=== PATIENT | male | born 1965 | race African-American/Black ===

== ENCOUNTER 2017-04-11 21:55 | Emergency (ER) | payer BC ==
[~2017-04-11] VITALS: Ht 182.9 cm; Wt 99.8 kg
--- NOTE | ~2017-04-11 | EKG ---
[address] [address] ELECTROCARDIOGRAM REPORT Name: PLACIDO SY [id number] Admission: 04/11/17 Attend Phys: Discharge: 04/12/17 Date of : 65 Report #: [id number] THIS REPORT FOR: //name// [facility] ED Test Date: 2017-04-11 Test Time: 21:59:02 Pat Name: PLACIDO SY Department: Room: Gender: M Pay Station Collector: [id number] : 1965 Requested By: Luis Garnett Order Number: [id number] MD: Satnam Fish Measurements Intervals [place] Rate: 76 P: 55 [place]: 150 QRS: 49 QRSD: 85 T: 33 QT: 368 QTc: 414 Interpretive Statements Sinus rhythm Baseline wander in lead(s) V3 Compared to ECG 02/25/2016 01:20:16 No significant changes Electronically Signed On 04-12-2017 8:06:58 CDT by Satnam Fish [email or web address] <ELECTRONICALLY SIGNED> By: Satnam Fish MD 04/12/17 0806 58 Satnam Fish MD /MANDI
[~2017-04-11 21:55] MED LIST: ANTIVERT25 MG PO; FLONASE 0.05%50 MCG; LISINOPRIL5 MG PO; NOHOMEMEDICATIONS; PEPCID20 MG PO; ULTRAM 50MG TAB50 MG PO; VALIUM5 MG PO; WAL-DRYL25 M1 PO; ZOFRAN ODT4 MG PO
[2017-04-11 22:11] LABS: HEMATOCRIT 41.5 % (42.0-52.0); HEMOGLOBIN 14.5 gm/dL (14.0-18.0); MCH 31.3 pg (26.0-34.0); MCV 89.4 fL (80.0-100.0); RBC 4.64 mil/uL (4.50-6.00); RDW 12.4 % (10.5-14.5); WBC 6.4 thou/uL (4.0-11.0)
[2017-04-11 22:25] LABS: ANION GAP 4 mmol/L (7-16); BUN 7 mg/dL (7-18); CALCIUM 8.6 mg/dL (8.5-10.1); CHLORIDE 106 mmol/L (98-107); CO2 27 mmol/L (21-32); GLUCOSE 110 mg/dL (74-106); POTASSIUM 3.7 mmol/L (3.5-5.1); SODIUM 137 mmol/L (136-145)
[2017-04-11 22:33] LABS: TROPONIN-I < 0.04 ng/mL (<0.04-0.07)
[2017-04-12 00:50] VITALS: BP 117/75
== END 2017-04-12 00:52 | disposition home or self-care (01) ==
LOC: ER 21:55
PROVIDERS: Emergency Medicine
DX: R07.89 Other chest pain (principal); F17.210 Nicotine dependence, cigarettes, uncomplicated; I10 Essential (primary) hypertension

== ENCOUNTER 2017-12-28 05:38 | Emergency (ER) | payer BC ==
[~2017-12-28] VITALS: Ht 182.9 cm; Wt 97.5 kg
[2017-12-28 07:20] LABS: URINE BILIRUBIN NEGATIVE (Negative); URINE BLOOD 1+ (Negative); URINE CLARITY CLEAR; URINE COLOR YELLOW; URINE GLUCOSE-RANDOM* NEGATIVE (Negative); URINE KETONES NEGATIVE (Negative); URINE LEUKOCYTES NEGATIVE (Negative); URINE NITRITE NEGATIVE (Negative); URINE PROTEIN (DIPSTICK) NEGATIVE (Negative); URINE SPECIFIC GRAVITY >= 1.030 (1.005-1.035); URINE UROBILINOGEN 0.2 E.U./dl (0.2-1.0)
[2017-12-28 07:26] LABS: ABSOLUTE NEUTROPHILS 2.7 thou/uL (1.4-8.2); BASOPHILS 0.5 % (0.0-2.0); EOSINOPHILS 3.5 % (0.0-3.0); HEMATOCRIT 43.8 % (42.0-52.0); HEMOGLOBIN 15.4 gm/dL (14.0-18.0); LYMPHOCYTES 33.5 % (24.0-44.0); MCH 31.3 pg (26.0-34.0); MCHC 35.1 g/dL (28.0-37.0); MONOCYTES 8.6 % (1.0-8.0); PLATELET COUNT 158 thou/uL (150-400); POLYS 53.9 % (36.0-66.0); RBC 4.92 mil/uL (4.50-6.00); RDW 12.4 % (10.5-14.5)
[2017-12-28 07:27] LABS: MUCUS >6 Heavy strn/LPF (None Seen)
[2017-12-28 07:28] LABS: BACTERIA 1-9 Few /HPF (None Seen); CASTS None Seen /LPF (None Seen); CRYSTALS None Seen /LPF (None Seen); SQUAMOUS 0-3 Few /LPF (0-3); URINE RBC 0-2 Rare /HPF (0-2); URINE WBC 0-5 Rare /HPF (0-5)
[2017-12-28 07:32] LABS: CALCIUM 8.8 mg/dL (8.5-10.1); POTASSIUM 3.8 mmol/L (3.5-5.1)
[2017-12-28 07:37] LABS: DIRECT BILIRUBIN 0.2 mg/dL (<0.1-0.3); TOTAL BILIRUBIN 1.8 mg/dL (<0.1-1.0); TOTAL PROTEIN 7.4 g/dL (6.4-8.2)
[2017-12-28] MEDS ORDERED: GAS-X125 M1 PO (09:18)
[2017-12-28] MEDS ORDERED: BENTYL 20 MG TA20 M1 PO (09:18)
[2017-12-28] MEDS ORDERED: ULTRAM 50MG TAB50 MG PO (09:20)
[2017-12-28] MEDS ORDERED: ZOFRAN ODT4 MG PO (09:21)
[2017-12-28 09:36] VITALS: BP 148/78
== END 2017-12-28 09:37 ==
LOC: ER 05:38
PROVIDERS: Emergency Medicine
DX: R14.0 Abdominal distension (gaseous) (principal); R94.5 Abnormal results of liver function studies; R10.30 Lower abdominal pain, unspecified; I10 Essential (primary) hypertension; F17.210 Nicotine dependence, cigarettes, uncomplicated

== ENCOUNTER 2018-01-06 03:27 | Emergency (ER) | payer BC ==
[~2018-01-06] VITALS: Ht 182.9 cm; Wt 95.3 kg
--- NOTE | ~2018-01-06 | EKG ---
[address] [address] ELECTROCARDIOGRAM REPORT Name: PLACIDO SY Room #: [facility]#: [id number] Admission: 01/06/18 Attend Phys: Discharge: 01/06/18 Date of : 65 Report #: [id number] THIS REPORT FOR: //name// [facility] ED Test Date: 2018-01-06 Test Time: 03:30:03 Pat Name: PLACIDO SY Department: Room: Gender: Nursing Associate: JAY : 1965 Requested By: Jennifer Ochoa Order Number: [id number] MD: Guillermo Omalley Measurements Intervals [place] Rate: 58 P: 74 [place]: 158 QRS: 60 QRSD: 100 T: 59 QT: 404 QTc: 397 Interpretive Statements Sinus rhythm No significant abnormality Compared to ECG 04/11/2017 21:59:02 No significant changes Electronically Signed On 01-06-2018 10:04:19 CDT by Guillermo Omalley [email or web address] <ELECTRONICALLY SIGNED> By: Guillermo Omalley MD, [facility] 01/06/18 1004 0330 0330 Guillermo Omalley MD, FACC /EPI
[~2018-01-06 03:27] MED LIST changes: +BENTYL 20 MG TA20 M1 PO; +GAS-X125 M1 PO
[2018-01-06] MEDS ORDERED: NOHOMEMEDICATIONS (03:49)
[2018-01-06 04:10] LABS: ABSOLUTE NEUTROPHILS 1.8 thou/uL (1.4-8.2); BASOPHILS 1.5 % (0.0-2.0); EOSINOPHILS 5.8 % (0.0-3.0); HEMATOCRIT 41.6 % (42.0-52.0); HEMOGLOBIN 14.5 gm/dL (14.0-18.0); LYMPHOCYTES 47.9 % (24.0-44.0); MCHC 34.9 g/dL (28.0-37.0); MCV 88.6 fL (80.0-100.0); MONOCYTES 8.8 % (1.0-8.0); PLATELET COUNT 172 thou/uL (150-400); RBC 4.69 mil/uL (4.50-6.00); RDW 12.5 % (10.5-14.5)
[2018-01-06 04:18] LABS: ANION GAP 9 mmol/L (7-16); BUN 12 mg/dL (7-18); CALCIUM 8.7 mg/dL (8.5-10.1); CHLORIDE 103 mmol/L (98-107); CO2 27 mmol/L (21-32); CREATININE 1.1 mg/dL (0.7-1.3); GLUCOSE 106 mg/dL (74-106); POTASSIUM 3.9 mmol/L (3.5-5.1); SODIUM 139 mmol/L (136-145)
[2018-01-06 04:27] LABS: ALBUMIN 3.6 g/dL (3.4-5.0); DIRECT BILIRUBIN 0.1 mg/dL (<0.1-0.3); LIPASE 241 U/L (73-393); SGOT 32 U/L (15-37); SGPT 43 U/L (30-65); TOTAL BILIRUBIN 0.9 mg/dL (<0.1-1.0); TOTAL PROTEIN 6.9 g/dL (6.4-8.2); TROPONIN-I <0.06 ng/mL (<0.06)
[2018-01-06] MEDS ORDERED: PRILOSEC OTC20 MG PO (05:20)
[2018-01-06] MEDS ORDERED: ANTIVERT25 MG PO (05:20)
[2018-01-06 05:48] VITALS: BP 117/77
== END 2018-01-06 05:49 | disposition home or self-care (01) ==
LOC: ER 03:27
PROVIDERS: Emergency Medicine
DX: R07.89 Other chest pain (principal); R42 Dizziness and giddiness; R51 Headache; R06.02 Shortness of breath; F17.210 Nicotine dependence, cigarettes, uncomplicated; I10 Essential (primary) hypertension

== ENCOUNTER 2018-01-29 02:14 | Emergency (ER) | payer BC ==
[~2018-01-29] VITALS: Ht 182.9 cm; Wt 95.3 kg
--- NOTE | ~2018-01-29 | EKG ---
[address] [address] ELECTROCARDIOGRAM REPORT Name: PLACIDO SY Room #: [facility]#: [id number] Admission: 01/29/18 Attend Phys: Discharge: 01/29/18 Date of : 65 Report #: [id number] THIS REPORT FOR: //name// [facility] ED Test Date: 2018-01-29 Test Time: 02:18:50 Pat Name: PLACIDO SY Department: Room: Gender: M Fisher: KEYON : 1965 Requested By: Sedrick Sheppard Order Number: [id number] MD: Guillermo Omalley Measurements Intervals [place] Rate: 68 P: 72 [place]: 164 QRS: 51 QRSD: 92 T: 41 QT: 361 QTc: 384 Interpretive Statements Sinus rhythm Normal tracing Compared to ECG 01/06/2018 03:30:03 No significant changes Electronically Signed On 01-29-2018 7:38:06 CDT by Guillermo Omalley [email or web address] <ELECTRONICALLY SIGNED> By: Guillermo Omalley MD, [facility] 01/29/18 0738 0218 0218 Guillermo Omalley MD, FACC /EPI
[~2018-01-29 02:14] MED LIST changes: +PRILOSEC OTC20 MG PO
[2018-01-29 02:46] LABS: ABSOLUTE NEUTROPHILS 2.5 thou/uL (1.4-8.2); BASOPHILS 1.3 % (0.0-2.0); EOSINOPHILS 6.5 % (0.0-3.0); HEMATOCRIT 41.2 % (42.0-52.0); HEMOGLOBIN 14.4 gm/dL (14.0-18.0); LYMPHOCYTES 38.7 % (24.0-44.0); MCH 31.1 pg (26.0-34.0); MCV 88.8 fL (80.0-100.0); MONOCYTES 8.8 % (1.0-8.0); PLATELET COUNT 167 thou/uL (150-400); POLYS 44.7 % (36.0-66.0); RBC 4.64 mil/uL (4.50-6.00); RDW 12.5 % (10.5-14.5); WBC 5.6 thou/uL (4.0-11.0)
[2018-01-29 02:52] LABS: ANION GAP 4 mmol/L (7-16); BUN 8 mg/dL (7-18); CALCIUM 8.9 mg/dL (8.5-10.1); CHLORIDE 106 mmol/L (98-107); CO2 32 mmol/L (21-32); CREATININE 1.1 mg/dL (0.7-1.3); GLUCOSE 134 mg/dL (74-106); POTASSIUM 3.6 mmol/L (3.5-5.1); SODIUM 142 mmol/L (136-145)
[2018-01-29 03:00] LABS: ALBUMIN 3.8 g/dL (3.4-5.0); MAGNESIUM 1.9 mg/dL (1.8-2.4); SGOT 18 U/L (15-37); SGPT 27 U/L (30-65); TOTAL BILIRUBIN 0.8 mg/dL (<0.1-1.0); TOTAL PROTEIN 7.2 g/dL (6.4-8.2); TROPONIN-I <0.06 ng/mL (<0.06)
[2018-01-29 03:45] LABS: AMP/METHAMP Negative (Negative); BARBITURATES Negative (Negative); BENZODIAZEPINES Negative (Negative); COCAINE Negative (Negative); METHADONE Negative (Negative); OPIATES Negative (Negative); PCP Negative (Negative)
[2018-01-29 05:17] VITALS: BP 117/87
== END 2018-01-29 05:17 | disposition home or self-care (01) ==
LOC: ER 02:14
PROVIDERS: Emergency Medicine
DX: R51 Headache (principal); R07.89 Other chest pain; R00.2 Palpitations; R06.02 Shortness of breath; I10 Essential (primary) hypertension; Z87.891 Personal history of nicotine dependence

== ENCOUNTER 2018-08-02 17:28 | Emergency (ER) | payer BC ==
[~2018-08-02] VITALS: Ht 182.9 cm; Wt 97.5 kg
[~2018-08-02 17:28] MED LIST changes: +CITRATE OF MAG296 ML PO; +NAPROSYN500 MG PO; +PREDNISONE 20 M20 MG PO
[2018-08-02 18:02] LABS: URINE CLARITY CLEAR; URINE COLOR YELLOW
[2018-08-02 18:03] LABS: URINE BILIRUBIN NEGATIVE (Negative); URINE BLOOD NEGATIVE (Negative); URINE GLUCOSE-RANDOM* NEGATIVE (Negative); URINE KETONES NEGATIVE (Negative); URINE LEUKOCYTES-REFLEX NEGATIVE (Negative); URINE NITRITE-REFLEX NEGATIVE (Negative); URINE PROTEIN (DIPSTICK) NEGATIVE (Negative); URINE UROBILINOGEN 0.2 E.U./dl (0.2-1.0)
[2018-08-02 19:10] LABS: ABSOLUTE NEUTROPHILS 2.7 thou/uL (1.4-8.2); BASOPHILS 1.1 % (0.0-2.0); EOSINOPHILS 6.1 % (0.0-3.0); HEMATOCRIT 44.9 % (42.0-52.0); HEMOGLOBIN 15.8 gm/dL (14.0-18.0); LYMPHOCYTES 40.8 % (24.0-44.0); MCH 31.5 pg (26.0-34.0); MCHC 35.2 g/dL (28.0-37.0); MCV 89.3 fL (80.0-100.0); MONOCYTES 9.4 % (1.0-8.0); PLATELET COUNT 161 thou/uL (150-400); POLYS 42.6 % (36.0-66.0); RBC 5.03 mil/uL (4.50-6.00); RDW 12.7 % (10.5-14.5); WBC 6.2 thou/uL (4.0-11.0)
[2018-08-02 19:14] LABS: ANION GAP 8 mmol/L (7-16); BUN 6 mg/dL (7-18); CALCIUM 8.6 mg/dL (8.5-10.1); CHLORIDE 104 mmol/L (98-107); CO2 29 mmol/L (21-32); CREATININE 0.9 mg/dL (0.7-1.3); GLUCOSE 109 mg/dL (74-106); POTASSIUM 3.9 mmol/L (3.5-5.1); SODIUM 141 mmol/L (136-145)
[2018-08-02 19:23] LABS: ALBUMIN 3.8 g/dL (3.4-5.0); LIPASE 182 U/L (73-393); SGOT 18 U/L (15-37); SGPT 29 U/L (30-65); TOTAL BILIRUBIN 0.8 mg/dL (<0.1-1.0); TOTAL PROTEIN 7.3 g/dL (6.4-8.2); TROPONIN-I <0.06 ng/mL (<0.06)
[2018-08-02] MEDS ORDERED: CARAFATE 1 GM TA1 G1 PO (19:36)
[2018-08-02 20:01] VITALS: BP 113/91
--- NOTE | 2018-08-03 12:02 | EKG ---
[address] [address] ELECTROCARDIOGRAM REPORT Name: PLACIDO SY Room #: [facility]#: [id number] Admission: 08/02/18 Attend Phys: Discharge: 08/02/18 Date of : 65 Report #: [id number] THIS REPORT FOR: //name// [facility] ED Test Date: 2018-08-02 Test Time: 18:23:57 Pat Name: PLACIDO SY Department: Room: Gender: M Investigative Research Specialist: : 1965 Requested By: Kayli Thomas Order Number: [id number] MD: Guillermo Omalley Measurements Intervals [place] Rate: 67 P: 58 [place]: 153 QRS: 44 QRSD: 86 T: 36 QT: 384 QTc: 406 Interpretive Statements Sinus rhythm Atrial premature complex Compared to ECG 01/29/2018 02:18:50 Atrial premature complex(es) now present Electronically Signed On 08-03-2018 12:01:48 INSPECTION CLERK by Guillermo Omalley [email or web address] <ELECTRONICALLY SIGNED> By: Guillermo Omalley MD, [facility] 08/03/18 1201 1823 22 Guillermo Omalley MD, FACC /EPI
== END 2018-08-02 20:03 | disposition home or self-care (01) ==
LOC: ER 17:28
PROVIDERS: Physician Assistant
DX: K29.70 Gastritis, unspecified, without bleeding (principal); I10 Essential (primary) hypertension; Z87.891 Personal history of nicotine dependence

== ENCOUNTER → 2018-08-26 | Outpatient (CLI) | payer BC ==
[~2018-08-26] MED LIST changes: +CARAFATE 1 GM TA1 G1 PO
== END ==
LOC: ULTRA 08:34
DX: N28.1 Cyst of kidney, acquired (principal); R14.0 Abdominal distension (gaseous)

== ENCOUNTER 2018-09-16 19:38 | Emergency (ER) | payer BC ==
[~2018-09-16] VITALS: Ht 182.9 cm; Wt 99.8 kg
[2018-09-16 20:14] LABS: ABSOLUTE NEUTROPHILS 2.7 thou/uL (1.4-8.2); BASOPHILS 1.2 % (0.0-2.0); EOSINOPHILS 5.7 % (0.0-3.0); HEMATOCRIT 45.4 % (42.0-52.0); HEMOGLOBIN 15.8 gm/dL (14.0-18.0); LYMPHOCYTES 40.9 % (24.0-44.0); MCH 31.2 pg (26.0-34.0); MCHC 34.7 g/dL (28.0-37.0); MCV 89.8 fL (80.0-100.0); MONOCYTES 9.4 % (1.0-8.0); PLATELET COUNT 168 thou/uL (150-400); POLYS 42.8 % (36.0-66.0); RBC 5.05 mil/uL (4.50-6.00); RDW 12.7 % (10.5-14.5); WBC 6.3 thou/uL (4.0-11.0)
[2018-09-16 20:21] LABS: CALCIUM 9.3 mg/dL (8.5-10.1); POTASSIUM 3.9 mmol/L (3.5-5.1)
[2018-09-16 20:27] LABS: ALBUMIN 4.1 g/dL (3.4-5.0); TOTAL PROTEIN 7.7 g/dL (6.4-8.2)
[2018-09-16] MEDS ORDERED: BUTALB-APAP-CA1 EACH PO (20:44)
[2018-09-16 21:23] VITALS: BP 134/87
== END 2018-09-16 21:24 | disposition home or self-care (01) ==
LOC: ER 19:38
PROVIDERS: Nurse Practitioner Family
DX: R51 Headache (principal); I10 Essential (primary) hypertension; Z87.891 Personal history of nicotine dependence

== ENCOUNTER 2019-01-14 16:20 | Emergency (ER) | payer BC ==
[~2019-01-14] VITALS: Ht 182.9 cm; Wt 97.5 kg
[~2019-01-14 16:20] MED LIST changes: +BUTALB-APAP-CA1 EACH PO
[2019-01-14 18:09] LABS: ABSOLUTE NEUTROPHILS 2.8 thou/uL (1.4-8.2); BASOPHILS 0.6 % (0.0-2.0); EOSINOPHILS 3.7 % (0.0-3.0); HEMATOCRIT 44.6 % (42.0-52.0); HEMOGLOBIN 15.5 gm/dL (14.0-18.0); LYMPHOCYTES 36.1 % (24.0-44.0); MCH 31.3 pg (26.0-34.0); MCHC 34.8 g/dL (28.0-37.0); MONOCYTES 7.5 % (1.0-8.0); PLATELET COUNT 172 thou/uL (150-400); POLYS 52.1 % (36.0-66.0); RBC 4.96 mil/uL (4.50-6.00); RDW 12.6 % (10.5-14.5); WBC 5.4 thou/uL (4.0-11.0)
[2019-01-14 18:11] LABS: ANION GAP 7 mmol/L (7-16); BUN 8 mg/dL (7-18); CALCIUM 9.4 mg/dL (8.5-10.1); CHLORIDE 103 mmol/L (98-107); CO2 30 mmol/L (21-32); GLUCOSE 111 mg/dL (74-106); POTASSIUM 3.8 mmol/L (3.5-5.1); SODIUM 140 mmol/L (136-145)
[2019-01-14 18:20] LABS: TROPONIN-I <0.06 ng/mL (<0.06)
[2019-01-14 19:04] VITALS: BP 136/85
--- NOTE | 2019-01-15 09:47 | EKG ---
[address] [address] ELECTROCARDIOGRAM REPORT Name: PLACIDO SY Room #: [facility]#: [id number] ������������������ Admission: 01/14/19 ������������������ Attend Phys: Discharge: 01/14/19 ������������������ Date of : 65 Report #: [id number] ����������������������������������������������������������������� [id number] THIS REPORT FOR: //name// [facility] ED Test Date: 2019-01-14 Test Time: 16:17:18 Pat Name: PLACIDO SY Department: Room: Gender: M Knitting Supervisor: BRANDY : 1965 Requested By: Modesto Mccray Order Number: [id number] MD: Guillermo Omalley Measurements Intervals [place] Rate: 84 P: 73 [place]: 147 QRS: 49 QRSD: 79 T: 52 QT: 340 QTc: 402 Interpretive Statements Sinus rhythm Normal tracing Compared to ECG 08/02/2018 18:23:57 Atrial premature complex(es) no longer present Electronically Signed On 01-15-2019 9:46:57 CDT by Guillermo Omalley [email or web address] ��������������������������������������������� <ELECTRONICALLY SIGNED> ���������������������������������������� By: Guillermo Omalley MD, [facility] ��������������������������������������������� 01/15/19 0946 D: [id number] 16 Guillermo Omalley MD, FACC /EPI
== END 2019-01-14 19:07 | disposition home or self-care (01) ==
LOC: ER 16:20
PROVIDERS: Emergency Medicine
DX: I10 Essential (primary) hypertension (principal); Z87.891 Personal history of nicotine dependence

== ENCOUNTER 2019-02-27 09:30 | Emergency (ER) | payer BC ==
[~2019-02-27] VITALS: Ht 182.9 cm; Wt 93.0 kg
[2019-02-27 10:09] LABS: ABSOLUTE NEUTROPHILS 2.3 thou/uL (1.4-8.2); RDW 12.5 % (10.5-14.5)
[2019-02-27 10:11] LABS: BASOPHILS 1.1 % (0.0-2.0); EOSINOPHILS 4.5 % (0.0-3.0); HEMATOCRIT 45.6 % (42.0-52.0); HEMOGLOBIN 15.8 gm/dL (14.0-18.0); LYMPHOCYTES 38.6 % (24.0-44.0); MCHC 34.8 g/dL (28.0-37.0); MCV 89.2 fL (80.0-100.0); MONOCYTES 9.7 % (1.0-8.0); POLYS 46.1 % (36.0-66.0); RBC 5.11 mil/uL (4.50-6.00)
[2019-02-27 10:12] LABS: CALCIUM 9.3 mg/dL (8.5-10.1); CREATININE 1.1 mg/dL (0.7-1.3); POTASSIUM 4.2 mmol/L (3.5-5.1)
[2019-02-27 10:18] LABS: ALBUMIN 4.2 g/dL (3.4-5.0); DIRECT BILIRUBIN 0.2 mg/dL (<0.1-0.3); TOTAL BILIRUBIN 1.4 mg/dL (<0.1-1.0)
[2019-02-27 10:55] LABS: LARGE PLATELETS FEW; PLATELET COUNT 179 thou/uL (150-400); PLATELET ESTIMATE NORMAL
[2019-02-27 11:57] VITALS: BP 126/88
--- NOTE | 2019-02-28 10:31 | EKG ---
[address] [address] ELECTROCARDIOGRAM REPORT Name: PLACIDO SY Room #: [facility]#: [id number] Admission: 02/27/19 Attend Phys: Discharge: 02/27/19 Date of : 65 Report #: [id number] THIS REPORT FOR: //name// [facility] ED Test Date: 2019-02-27 Test Time: 09:36:41 Pat Name: PLACIDO SY Department: Room: Gender: M Laminating Machine Operator: KEYON : 1965 Requested By: Jennifer Ochoa Order Number: [id number] MD: Guillermo Omalley Measurements Intervals [place] Rate: 65 P: 73 NE: 156 QRS: 46 QRSD: 103 T: 57 QT: 401 QTc: 417 Interpretive Statements Sinus rhythm Normal tracing Compared to ECG 01/14/2019 16:17:18 No significant changes Electronically Signed On 02-28-2019 10:31:24 CDT by Guillermo Omalley [email or web address] <ELECTRONICALLY SIGNED> By: Guillermo Omalley MD, [facility] 02/28/19 1031 0936 0936 Guillermo Omalley MD, FACC /EPI
== END 2019-02-27 12:06 | disposition home or self-care (01) ==
LOC: ER 09:30
PROVIDERS: Emergency Medicine
DX: R10.32 Left lower quadrant pain (principal); R10.13 Epigastric pain; Z87.891 Personal history of nicotine dependence; I10 Essential (primary) hypertension

== ENCOUNTER 2019-03-20 00:24 | Emergency (ER) | payer BC ==
[~2019-03-20] VITALS: Ht 182.9 cm; Wt 93.0 kg
[2019-03-20] MEDS ORDERED: NOHOMEMEDICATIONS (01:09)
[2019-03-20 01:36] LABS: URINE BILIRUBIN NEGATIVE (Negative); URINE BLOOD NEGATIVE (Negative); URINE CLARITY CLEAR; URINE COLOR YELLOW; URINE GLUCOSE-RANDOM* NEGATIVE (Negative); URINE KETONES NEGATIVE (Negative); URINE LEUKOCYTES-REFLEX NEGATIVE (Negative); URINE NITRITE-REFLEX NEGATIVE (Negative); URINE PROTEIN (DIPSTICK) NEGATIVE (Negative); URINE SPECIFIC GRAVITY <= 1.005 (1.005-1.035); URINE UROBILINOGEN 0.2 E.U./dl (0.2-1.0)
[2019-03-20 02:07] LABS: ABSOLUTE NEUTROPHILS 2.4 thou/uL (1.4-8.2); BASOPHILS 0.8 % (0.0-2.0); EOSINOPHILS 5.9 % (0.0-3.0); HEMATOCRIT 41.7 % (42.0-52.0); HEMOGLOBIN 13.9 gm/dL (14.0-18.0); MCHC 33.4 g/dL (28.0-37.0); MONOCYTES 7.7 % (1.0-8.0); PLATELET COUNT 164 thou/uL (150-400); POLYS 45.6 % (36.0-66.0); RBC 4.63 mil/uL (4.50-6.00); RDW 12.6 % (10.5-14.5); WBC 5.2 thou/uL (4.0-11.0)
[2019-03-20 02:09] LABS: CALCIUM 9.1 mg/dL (8.5-10.1); POTASSIUM 3.8 mmol/L (3.5-5.1)
[2019-03-20 02:15] LABS: ALBUMIN 3.7 g/dL (3.4-5.0); DIRECT BILIRUBIN 0.1 mg/dL (<0.1-0.3); TOTAL BILIRUBIN 1.1 mg/dL (<0.1-1.0); TOTAL PROTEIN 7.1 g/dL (6.4-8.2)
[2019-03-20 02:47] VITALS: BP 126/83
== END 2019-03-20 02:52 | disposition home or self-care (01) ==
LOC: ER 00:24
PROVIDERS: Emergency Medicine
DX: R10.9 Unspecified abdominal pain (principal); I10 Essential (primary) hypertension

== ENCOUNTER 2019-04-15 15:08 | Emergency (ER) | payer BC ==
[~2019-04-15] VITALS: Ht 182.9 cm; Wt 97.5 kg
[2019-04-15 17:04] LABS: ABSOLUTE NEUTROPHILS 2.9 thou/uL (1.4-8.2); BASOPHILS 0.8 % (0.0-2.0); EOSINOPHILS 4.4 % (0.0-3.0); HEMATOCRIT 43.2 % (42.0-52.0); HEMOGLOBIN 14.4 gm/dL (14.0-18.0); LYMPHOCYTES 35.6 % (24.0-44.0); MCH 30.2 pg (26.0-34.0); MCHC 33.3 g/dL (28.0-37.0); MCV 90.6 fL (80.0-100.0); MONOCYTES 8.4 % (1.0-8.0); PLATELET COUNT 178 thou/uL (150-400); POLYS 50.8 % (36.0-66.0); RBC 4.76 mil/uL (4.50-6.00); RDW 12.6 % (10.5-14.5); WBC 5.6 thou/uL (4.0-11.0)
[2019-04-15 17:22] LABS: ALBUMIN 3.8 g/dL (3.4-5.0); ANION GAP 5 mmol/L (7-16); BUN 9 mg/dL (7-18); CHLORIDE 106 mmol/L (98-107); CO2 31 mmol/L (21-32); CREATININE 1.1 mg/dL (0.7-1.3); GLUCOSE 90 mg/dL (74-106); POTASSIUM 4.1 mmol/L (3.5-5.1); SGOT 13 U/L (15-37); SGPT 12 U/L (30-65); SODIUM 142 mmol/L (136-145); TOTAL PROTEIN 7.2 g/dL (6.4-8.2); TROPONIN-I <0.06 ng/mL (<0.06)
[2019-04-15 17:27] LABS: CALCIUM 9.1 mg/dL (8.5-10.1)
[2019-04-15] MEDS ORDERED: NORCO 5-325 TA1 EAC1 PO (17:27)
[2019-04-15 17:47] VITALS: BP 134/90
--- NOTE | 2019-04-16 12:52 | EKG ---
[address] [address] ELECTROCARDIOGRAM REPORT Name: PLACIDO SY [id number] Admission: 04/15/19 Attend Phys: Discharge: 04/15/19 Date of : 65 Report #: [id number] THIS REPORT FOR: //name// [facility] ED Test Date: 2019-04-15 Test Time: 16:40:32 Pat Name: PLACIDO SY Department: Room: Gender: Supervisor Drawing: EBENEZER : 1965 Requested By: Kayli Thomas Order Number: [id number] MD: Satnam Fish Measurements Intervals [place] Rate: 67 P: 75 [place]: 155 QRS: 50 QRSD: 83 T: 49 QT: 386 QTc: 408 Interpretive Statements Sinus rhythm Compared to ECG 02/27/2019 09:36:41 No significant changes Electronically Signed On 04-16-2019 12:51:57 CDT by Satnam Fish [email or web address] <ELECTRONICALLY SIGNED> By: Satnam Fish MD 04/16/19 1251 1640 MD TRA Zuniga
[2019-04-16] MEDS ORDERED: AUGMENTIN 875-1 EACH PO (18:03)
[2019-04-22] MEDS ORDERED: NASACORT10.8 ML NARES (14:40)
[2019-04-22] MEDS ORDERED: AUGMENTIN 875-1 EACH PO (14:40)
[2019-04-22] MEDS ORDERED: PREDNISONE 20 M20 MG PO (14:40)
== END 2019-04-15 17:45 | disposition home or self-care (01) ==
LOC: ER 15:08
PROVIDERS: Physician Assistant
DX: M79.651 Pain in right thigh (principal); I10 Essential (primary) hypertension; Z87.891 Personal history of nicotine dependence

== ENCOUNTER 2019-04-16 16:28 | Emergency (ER) | payer BC ==
[~2019-04-16] VITALS: Ht 182.9 cm; Wt 97.5 kg
[~2019-04-16 16:28] MED LIST changes: +NORCO 5-325 TA1 EAC1 PO
[2019-04-16 17:31] LABS: ABSOLUTE NEUTROPHILS 2.5 thou/uL (1.4-8.2); BASOPHILS 0.9 % (0.0-2.0); EOSINOPHILS 5.9 % (0.0-3.0); HEMATOCRIT 43.9 % (42.0-52.0); HEMOGLOBIN 14.8 gm/dL (14.0-18.0); LYMPHOCYTES 36.7 % (24.0-44.0); MCH 30.3 pg (26.0-34.0); MCHC 33.7 g/dL (28.0-37.0); MONOCYTES 7.6 % (1.0-8.0); PLATELET COUNT 188 thou/uL (150-400); POLYS 48.9 % (36.0-66.0); RBC 4.88 mil/uL (4.50-6.00); RDW 12.6 % (10.5-14.5)
[2019-04-16 17:34] LABS: CALCIUM 9.3 mg/dL (8.5-10.1); POTASSIUM 3.8 mmol/L (3.5-5.1)
[2019-04-16 17:40] LABS: ALBUMIN 3.9 g/dL (3.4-5.0); TOTAL BILIRUBIN 1.2 mg/dL (<0.1-1.0); TOTAL PROTEIN 7.4 g/dL (6.4-8.2)
[2019-04-16] MEDS ORDERED: AUGMENTIN 875-1 EACH PO (18:03)
[2019-04-16 18:41] VITALS: BP 140/89
[2019-04-22] MEDS ORDERED: PREDNISONE 20 M20 MG PO (14:40)
[2019-04-22] MEDS ORDERED: AUGMENTIN 875-1 EACH PO (14:40)
[2019-04-22] MEDS ORDERED: NASACORT10.8 ML NARES (14:40)
== END 2019-04-16 18:47 | disposition still patient (30) ==
LOC: ER 16:28
PROVIDERS: Nurse Practitioner Family
DX: J32.9 Chronic sinusitis, unspecified (principal); R04.2 Hemoptysis; I10 Essential (primary) hypertension; Z87.891 Personal history of nicotine dependence

== ENCOUNTER → 2019-04-22 | Emergency (ER) | payer BC ==
[~2019-04-22] VITALS: Ht 182.9 cm; Wt 97.5 kg
[~2019-04-22] MED LIST changes: +AUGMENTIN 875-1 EACH PO; +NASACORT10.8 ML NARES
[2019-04-22 15:08] VITALS: BP 138/77
== END ==
LOC: ER 13:34
DX: H66.92 Otitis media, unspecified, left ear (principal); R42 Dizziness and giddiness; J32.1 Chronic frontal sinusitis; K21.9 Gastro-esophageal reflux disease without esophagitis; I10 Essential (primary) hypertension; Z87.891 Personal history of nicotine dependence

== ENCOUNTER 2019-05-13 13:10 | Emergency (ER) | payer BC ==
[~2019-05-13] VITALS: Ht 182.9 cm; Wt 93.9 kg
[2019-05-13 13:10] VITALS: BP 129/79
== END 2019-05-13 13:43 | disposition home or self-care (01) ==
LOC: ER 13:10
DX: M79.604 Pain in right leg (principal); R21 Rash and other nonspecific skin eruption; I10 Essential (primary) hypertension; K21.9 Gastro-esophageal reflux disease without esophagitis; Z87.891 Personal history of nicotine dependence

== ENCOUNTER 2019-08-27 08:50 | Emergency (ER) | payer BC ==
[~2019-08-27] VITALS: Ht 182.9 cm; Wt 95.3 kg
[2019-08-27 09:20] LABS: BASOPHILS 1.1 % (0.0-2.0); EOSINOPHILS 4.6 % (0.0-3.0); HEMATOCRIT 45.1 % (42.0-52.0); HEMOGLOBIN 15.1 gm/dL (14.0-18.0); LYMPHOCYTES 41.4 % (24.0-44.0); MCHC 33.4 g/dL (28.0-37.0); MCV 89.8 fL (80.0-100.0); MONOCYTES 8.1 % (1.0-8.0); PLATELET COUNT 182 thou/uL (150-400); POLYS 44.8 % (36.0-66.0); RBC 5.02 mil/uL (4.50-6.00); RDW 12.5 % (10.5-14.5); WBC 4.6 thou/uL (4.0-11.0)
[2019-08-27 09:28] LABS: ANION GAP 8 mmol/L (7-16); BUN 8 mg/dL (7-18); CALCIUM 9.2 mg/dL (8.5-10.1); CHLORIDE 103 mmol/L (98-107); CO2 29 mmol/L (21-32); GLUCOSE 107 mg/dL (74-106); POTASSIUM 3.9 mmol/L (3.5-5.1); SODIUM 140 mmol/L (136-145)
[2019-08-27 09:37] LABS: ALBUMIN 4.1 g/dL (3.4-5.0); SGOT 18 U/L (15-37); SGPT 26 U/L (30-65); TOTAL PROTEIN 7.9 g/dL (6.4-8.2); TROPONIN-I <0.06 ng/mL (<0.06)
[2019-08-27] MEDS ORDERED: ADULT LOW DOSE81 MG PO (11:44)
[2019-08-27 11:55] VITALS: BP 135/83
--- NOTE | 2019-08-27 16:17 | EKG ---
[facility] [place] [address] ELECTROCARDIOGRAM REPORT Name: PLACIDO SY Room #: [facility]#: [id number] Admission: 08/27/19 Attend Phys: Discharge: 08/27/19 Date of : 65 Report #: [id number] THIS REPORT FOR: cc: Brie Meng MD, Nora P. MD Couchonnal, Luis F. MD ~ THIS REPORT FOR: //name// [facility] ED Test Date: 2019-08-27 Test Time: 08:54:54 Pat Name: PLACIDO SY Department: Room: Gender: Gluer Machine Setup Operator: EBENEZER : 1965 Requested By: Tamika Dillon Order Number: [id number] MD: Satnam Fish Measurements Intervals [place] Rate: 76 P: 60 [place]: 152 QRS: 32 QRSD: 80 T: 31 QT: 358 QTc: 403 Interpretive Statements Sinus rhythm Compared to ECG 04/15/2019 16:40:32 No significant changes Electronically Signed On 08-27-2019 16:16:11 SUBWAY CONDUCTOR by Satnam Fish [email or web address] <ELECTRONICALLY SIGNED> By: Satnam Fish MD 08/27/19 1616 0854 0854 Satnam Fish MD /MANDI
--- NOTE | 2019-08-27 16:18 | EKG ---
[facility] [place] [address] ELECTROCARDIOGRAM REPORT Name: PLACIDO SY Room #: [facility]#: [id number] Admission: 08/27/19 Attend Phys: Discharge: 08/27/19 Date of : 65 Report #: [id number] THIS REPORT FOR: cc: Brie Meng MD, Nora P. MD Couchonnal, Luis F. MD ~ THIS REPORT FOR: //name// [facility] ED Test Date: 2019-08-27 Test Time: 10:54:17 Pat Name: PLACIDO SY Department: Room: Gender: Enrollment Nurse: EBENEZER : 1965 Requested By: Tamika Dillon Order Number: [id number] MD: Satnam Fish Measurements Intervals [place] Rate: 65 P: 65 [place]: 163 QRS: 27 QRSD: 77 T: 36 QT: 379 QTc: 394 Interpretive Statements Sinus rhythm Compared to ECG 04/15/2019 16:40:32 No significant changes Electronically Signed On 08-27-2019 16:17:06 HEAD BONE GRINDER by Satnam Fish [email or web address] <ELECTRONICALLY SIGNED> By: Satnam Fish MD 08/27/19 1617 1054 1054 Satnam Fish MD /EPI
== END 2019-08-27 11:56 | disposition home or self-care (01) ==
LOC: ER 08:50
PROVIDERS: Emergency Medicine Emergency Medical Services
DX: R07.9 Chest pain, unspecified (principal); I10 Essential (primary) hypertension; K21.9 Gastro-esophageal reflux disease without esophagitis; Z87.891 Personal history of nicotine dependence

== ENCOUNTER 2019-09-14 04:44 | Emergency (ER) | payer BC ==
[~2019-09-14] VITALS: Ht 182.9 cm; Wt 94.3 kg
[~2019-09-14 04:44] MED LIST changes: +ADULT LOW DOSE81 MG PO
[2019-09-14 05:08] LABS: BASOPHILS 1.1 % (0.0-2.0); EOSINOPHILS 5.3 % (0.0-3.0); HEMATOCRIT 43.3 % (42.0-52.0); HEMOGLOBIN 14.5 gm/dL (14.0-18.0); LYMPHOCYTES 44.3 % (24.0-44.0); MCH 30.3 pg (26.0-34.0); MCHC 33.5 g/dL (28.0-37.0); MCV 90.4 fL (80.0-100.0); MONOCYTES 8.8 % (1.0-8.0); PLATELET COUNT 159 thou/uL (150-400); POLYS 40.5 % (36.0-66.0); RBC 4.78 mil/uL (4.50-6.00); RDW 12.6 % (10.5-14.5); WBC 4.9 thou/uL (4.0-11.0)
[2019-09-14 05:12] LABS: ANION GAP 9 mmol/L (7-16); BUN 10 mg/dL (7-18); CALCIUM 8.9 mg/dL (8.5-10.1); CHLORIDE 103 mmol/L (98-107); CO2 28 mmol/L (21-32); GLUCOSE 107 mg/dL (74-106); POTASSIUM 3.7 mmol/L (3.5-5.1); SODIUM 140 mmol/L (136-145)
[2019-09-14 05:18] LABS: ALBUMIN 3.7 g/dL (3.4-5.0); DIRECT BILIRUBIN 0.1 mg/dL (<0.1-0.2); SGOT 15 U/L (15-37); SGPT 17 U/L (30-65); TOTAL PROTEIN 7.1 g/dL (6.4-8.2)
[2019-09-14 05:34] LABS: TROPONIN-I <0.06 ng/mL (<0.06)
[2019-09-14 05:55] VITALS: BP 136/83
--- NOTE | 2019-09-14 08:18 | EKG ---
[facility] [place] [address] ELECTROCARDIOGRAM REPORT Name: PLACIDO SY Room #: [facility]#: [id number] Admission: 09/14/19 Attend Phys: Discharge: 09/14/19 Date of : 65 Report #: [id number] THIS REPORT FOR: cc: Brie Meng MD, Nora P. MD Lundgren,Guillermo Gallego MD [facility] ~ THIS REPORT FOR: //name// [facility] ED Test Date: 2019-09-14 Test Time: 04:46:47 Pat Name: PLACIDO SY Department: Room: Gender: Networks Software Consultant: CORINE : 1965 Requested By: Jennifer Ochoa Order Number: [id number] MD: Guillermo Omalley Measurements Intervals [place] Rate: 67 P: 63 NM: 163 QRS: 39 QRSD: 85 T: 32 QT: 377 QTc: 398 Interpretive Statements Sinus rhythm Normal tracing Compared to ECG 08/27/2019 10:54:17 No significant changes Electronically Signed On 09-14-2019 8:17:38 CONSULTING NETWORKING ENGINEER by Guillermo Omalley [email or web address] <ELECTRONICALLY SIGNED> By: Guillermo Omalley MD, FACC 09/14/19 0817 0446 0446 Guillermo Omalley MD, [facility] /EPI
== END 2019-09-14 06:00 | disposition home or self-care (01) ==
LOC: ER 04:44
PROVIDERS: Emergency Medicine
DX: R07.89 Other chest pain (principal); R00.2 Palpitations; R42 Dizziness and giddiness; R41.0 Disorientation, unspecified; R26.2 Difficulty in walking, not elsewhere classified; I10 Essential (primary) hypertension; K21.9 Gastro-esophageal reflux disease without esophagitis; F12.90 Cannabis use, unspecified, uncomplicated; Z87.891 Personal history of nicotine dependence

== ENCOUNTER 2019-10-19 16:55 | Emergency (ER) | payer BC ==
[~2019-10-19] VITALS: Ht 182.9 cm; Wt 95.3 kg
[2019-10-19 17:00] VITALS: BP 152/107
[2019-10-19] MEDS ORDERED: CARAFATE 1 GM TA1 G1 PO (17:09)
[2019-10-19 17:23] LABS: URINE BILIRUBIN NEGATIVE (Negative); URINE BLOOD NEGATIVE (Negative); URINE CLARITY CLEAR; URINE COLOR YELLOW; URINE GLUCOSE-RANDOM* NEGATIVE (Negative); URINE KETONES NEGATIVE (Negative); URINE LEUKOCYTES-REFLEX NEGATIVE (Negative); URINE NITRITE-REFLEX NEGATIVE (Negative); URINE PROTEIN (DIPSTICK) NEGATIVE (Negative); URINE SPECIFIC GRAVITY 1.015 (1.005-1.035); URINE UROBILINOGEN 0.2 E.U./dl (0.2-1.0)
[2019-10-19 17:58] LABS: ABSOLUTE NEUTROPHILS 2.1 thou/uL (1.4-8.2); EOSINOPHILS 5.8 % (0.0-3.0); MCH 30.7 pg (26.0-34.0); MCV 90.3 fL (80.0-100.0); MONOCYTES 6.9 % (1.0-8.0); PLATELET COUNT 185 thou/uL (150-400); POLYS 45.3 % (36.0-66.0); RBC 5.21 mil/uL (4.50-6.00); RDW 12.4 % (10.5-14.5); WBC 4.7 thou/uL (4.0-11.0)
[2019-10-19 18:02] LABS: CALCIUM 9.2 mg/dL (8.5-10.1); CREATININE 1.1 mg/dL (0.7-1.3); POTASSIUM 3.7 mmol/L (3.5-5.1)
[2019-10-19 18:08] LABS: ALBUMIN 4.4 g/dL (3.4-5.0); TOTAL BILIRUBIN 1.9 mg/dL (<0.1-1.0)
[2019-10-19] MEDS ORDERED: PROBIOTIC1 EAC7 PO (19:19)
== END 2019-10-19 20:00 | disposition home or self-care (01) ==
LOC: ER 16:55
PROVIDERS: Nurse Practitioner Family
DX: R10.32 Left lower quadrant pain (principal); I10 Essential (primary) hypertension; K21.9 Gastro-esophageal reflux disease without esophagitis; Z87.891 Personal history of nicotine dependence

== ENCOUNTER 2019-11-25 21:45 | Emergency (ER) | payer BC ==
[~2019-11-25] VITALS: Ht 182.9 cm; Wt 89.8 kg
[~2019-11-25 21:45] MED LIST changes: +PROBIOTIC1 EAC7 PO
[2019-11-25] MEDS ORDERED: TOPROL XL25 MG PO (21:52)
[2019-11-25 22:18] LABS: ABSOLUTE NEUTROPHILS 2.4 thou/uL (1.4-8.2); BASOPHILS 0.8 % (0.0-2.0); EOSINOPHILS 4.6 % (0.0-3.0); HEMOGLOBIN 14.1 gm/dL (14.0-18.0); LYMPHOCYTES 41.5 % (24.0-44.0); MCH 30.6 pg (26.0-34.0); MCHC 34.3 g/dL (28.0-37.0); MCV 89.3 fL (80.0-100.0); MONOCYTES 7.8 % (1.0-8.0); PLATELET COUNT 164 thou/uL (150-400); POLYS 45.3 % (36.0-66.0); RBC 4.59 mil/uL (4.50-6.00); RDW 12.7 % (10.5-14.5); WBC 5.4 thou/uL (4.0-11.0)
[2019-11-25 22:22] LABS: CALCIUM 8.2 mg/dL (8.5-10.1); POTASSIUM 3.7 mmol/L (3.5-5.1)
[2019-11-25 22:29] LABS: ALBUMIN 3.8 g/dL (3.4-5.0); DIRECT BILIRUBIN 0.2 mg/dL (<0.1-0.2); TOTAL BILIRUBIN 1.5 mg/dL (<0.1-1.0)
[2019-11-25 23:15] VITALS: BP 127/83
[2019-11-25] MEDS ORDERED: REGLAN 5 MG TAB5 MG PO (23:32)
--- NOTE | 2019-11-26 08:23 | EKG ---
[facility] [place] [address] ELECTROCARDIOGRAM REPORT Name: PLACIDO SY Room #: [facility]#: [id number] Admission: 11/25/19 Attend Phys: Discharge: 11/25/19 Date of : 65 Report #: [id number] THIS REPORT FOR: cc: Brie Meng MD, Nora P. MD Lundgren, Craig H. MD [facility] THIS REPORT FOR: //name// [facility] ED Test Date: 2019-11-25 Test Time: 22:22:47 Pat Name: PLACIDO SY Department: Room: Gender: Communication Professor: NO : 1965 Requested By: Jennifer Ochoa Order Number: [id number] MD: Guillermo Omalley Measurements Intervals [place] Rate: 62 P: 63 RI: 166 QRS: 42 QRSD: 85 T: 36 QT: 395 QTc: 401 Interpretive Statements Sinus rhythm Normal tracing Compared to ECG 09/14/2019 04:46:47 No significant changes Electronically Signed On 11-26-2019 8:22:02 CDT by Guillermo Omalley [email or web address] <ELECTRONICALLY SIGNED> By: Guillermo Omalley MD, FACC 11/26/19 0822 222 21 Guillermo Omalley MD, [facility] /EPI
== END 2019-11-25 23:47 | disposition home or self-care (01) ==
LOC: ER 21:45
PROVIDERS: Emergency Medicine
DX: R11.0 Nausea (principal); R42 Dizziness and giddiness; E80.6 Other disorders of bilirubin metabolism; I10 Essential (primary) hypertension; K21.9 Gastro-esophageal reflux disease without esophagitis; Z87.891 Personal history of nicotine dependence

== ENCOUNTER 2019-12-04 10:20 | Emergency (ER) | payer BC ==
[~2019-12-04] VITALS: Ht 182.9 cm; Wt 90.3 kg
[~2019-12-04 10:20] MED LIST changes: +REGLAN 5 MG TAB5 MG PO; +TOPROL XL25 MG PO
[2019-12-04 11:24] LABS: EOSINOPHILS 5.5 % (0.0-3.0); HEMATOCRIT 42.3 % (42.0-52.0); HEMOGLOBIN 14.4 gm/dL (14.0-18.0); LYMPHOCYTES 38.9 % (24.0-44.0); MCH 30.6 pg (26.0-34.0); MCHC 33.9 g/dL (28.0-37.0); MCV 90.2 fL (80.0-100.0); MONOCYTES 8.5 % (1.0-8.0); PLATELET COUNT 164 thou/uL (150-400); POLYS 46.1 % (36.0-66.0); RBC 4.69 mil/uL (4.50-6.00); RDW 13.1 % (10.5-14.5); WBC 4.4 thou/uL (4.0-11.0)
[2019-12-04 11:38] LABS: ANION GAP 4 mmol/L (7-16); BUN 5 mg/dL (7-18); CALCIUM 8.4 mg/dL (8.5-10.1); CHLORIDE 105 mmol/L (98-107); CO2 31 mmol/L (21-32); CREATININE 0.9 mg/dL (0.7-1.3); GLUCOSE 92 mg/dL (74-106); POTASSIUM 3.8 mmol/L (3.5-5.1); SODIUM 140 mmol/L (136-145)
[2019-12-04 11:50] LABS: LIPASE 150 U/L (73-393); SGOT 21 U/L (15-37); SGPT 30 U/L (30-65); TOTAL BILIRUBIN 1.3 mg/dL (<0.1-1.0); TOTAL PROTEIN 7.3 g/dL (6.4-8.2); TROPONIN-I <0.06 ng/mL (<0.06)
[2019-12-04 12:55] VITALS: BP 148/97
--- NOTE | 2019-12-05 10:56 | EKG ---
[facility] [place] [address] ELECTROCARDIOGRAM REPORT Name: PLACIDO SY Room #: [facility]#: [id number] Admission: 12/04/19 Attend Phys: Discharge: 12/04/19 Date of : 65 Report #: [id number] THIS REPORT FOR: cc: Brie Meng MD, Nora P. MD Park, Jin S. MD ~ THIS REPORT FOR: //name// [facility] ED Test Date: 2019-12-04 Test Time: 10:44:34 Pat Name: PLACIDO SY Department: Room: Gender: Poultry Husbandry Worker: ANGELA : 1965 Requested By: Sedrick Sheppard Order Number: [id number] MD: Joshua Rapp Measurements Intervals [place] Rate: 60 P: 64 [place]: 178 QRS: 34 QRSD: 83 T: 44 QT: 397 QTc: 397 Interpretive Statements Sinus rhythm Baseline wander in lead(s) V1 Compared to ECG 11/25/2019 22:22:47 No significant changes Electronically Signed On 12-05-2019 10:54:56 CDT by Joshua Rapp [email or web address] <ELECTRONICALLY SIGNED> By: Joshua Rapp MD 12/05/19 1054 1044 1044 Joshua Rapp MD /[facility]
== END 2019-12-04 13:03 | disposition home or self-care (01) ==
LOC: ER 10:20
PROVIDERS: Emergency Medicine
DX: K56.41 Fecal impaction (principal); I10 Essential (primary) hypertension; K21.9 Gastro-esophageal reflux disease without esophagitis; Z87.891 Personal history of nicotine dependence

== ENCOUNTER 2019-12-22 13:08 | Emergency (ER) | payer BC ==
[~2019-12-22] VITALS: Ht 182.9 cm; Wt 90.7 kg
[2019-12-22] MEDS ORDERED: CARAFATE 1 GM TA1 GM PO (13:19)
[2019-12-22] MEDS ORDERED: NAPROSYN500 M1 PO (13:20)
[2019-12-22 13:44] LABS: URINE BILIRUBIN NEGATIVE (Negative); URINE BLOOD NEGATIVE (Negative); URINE CLARITY CLEAR; URINE COLOR YELLOW; URINE GLUCOSE-RANDOM* TRACE (Negative); URINE KETONES NEGATIVE (Negative); URINE LEUKOCYTES-REFLEX NEGATIVE (Negative); URINE NITRITE-REFLEX NEGATIVE (Negative); URINE PROTEIN (DIPSTICK) NEGATIVE (Negative); URINE SPECIFIC GRAVITY <= 1.005 (1.005-1.035); URINE UROBILINOGEN 0.2 E.U./dl (0.2-1.0)
[2019-12-22 13:58] LABS: ABSOLUTE NEUTROPHILS 2.1 thou/uL (1.4-8.2); BASOPHILS 1.1 % (0.0-2.0); EOSINOPHILS 6.1 % (0.0-3.0); HEMATOCRIT 42.7 % (42.0-52.0); HEMOGLOBIN 14.6 gm/dL (14.0-18.0); LYMPHOCYTES 37.3 % (24.0-44.0); MCH 30.8 pg (26.0-34.0); MCHC 34.1 g/dL (28.0-37.0); MCV 90.1 fL (80.0-100.0); MONOCYTES 8.8 % (1.0-8.0); PLATELET COUNT 180 thou/uL (150-400); POLYS 46.7 % (36.0-66.0); RBC 4.74 mil/uL (4.50-6.00); RDW 12.9 % (10.5-14.5); WBC 4.4 thou/uL (4.0-11.0)
[2019-12-22 14:32] LABS: CALCIUM 8.5 mg/dL (8.5-10.1); POTASSIUM 3.4 mmol/L (3.5-5.1)
[2019-12-22 14:33] LABS: TOTAL BILIRUBIN 1.5 mg/dL (0.2-1.0); TOTAL PROTEIN 7.1 g/dL (6.4-8.2)
[2019-12-22 14:51] VITALS: BP 122/80
== END 2019-12-22 14:51 | disposition home or self-care (01) ==
LOC: ER 13:08
PROVIDERS: Physician Assistant
DX: R19.7 Diarrhea, unspecified (principal); R53.1 Weakness; I10 Essential (primary) hypertension; K21.9 Gastro-esophageal reflux disease without esophagitis; Z87.891 Personal history of nicotine dependence; Z79.899 Other long term (current) drug therapy

== ENCOUNTER 2019-12-25 03:39 | Emergency (ER) | payer BC ==
[~2019-12-25] VITALS: Ht 182.9 cm; Wt 90.7 kg
[~2019-12-25 03:39] MED LIST changes: +CARAFATE 1 GM TA1 GM PO; +NAPROSYN500 M1 PO
[2019-12-25 04:41] LABS: ABSOLUTE NEUTROPHILS 1.7 thou/uL (1.4-8.2); BASOPHILS 0.8 % (0.0-2.0); EOSINOPHILS 8.1 % (0.0-3.0); HEMATOCRIT 42.7 % (42.0-52.0); HEMOGLOBIN 14.4 gm/dL (14.0-18.0); LYMPHOCYTES 45.2 % (24.0-44.0); MCH 30.4 pg (26.0-34.0); MCHC 33.8 g/dL (28.0-37.0); MCV 89.9 fL (80.0-100.0); MONOCYTES 8.1 % (1.0-8.0); PLATELET COUNT 176 thou/uL (150-400); POLYS 37.8 % (36.0-66.0); RBC 4.75 mil/uL (4.50-6.00); RDW 13.1 % (10.5-14.5); WBC 4.5 thou/uL (4.0-11.0)
[2019-12-25 04:58] LABS: URINE BILIRUBIN NEGATIVE (Negative); URINE BLOOD NEGATIVE (Negative); URINE CLARITY CLEAR; URINE COLOR YELLOW; URINE GLUCOSE-RANDOM* NEGATIVE (Negative); URINE KETONES NEGATIVE (Negative); URINE LEUKOCYTES-REFLEX NEGATIVE (Negative); URINE NITRITE-REFLEX NEGATIVE (Negative); URINE PROTEIN (DIPSTICK) NEGATIVE (Negative); URINE UROBILINOGEN 0.2 E.U./dl (0.2-1.0)
[2019-12-25 05:02] LABS: CALCIUM 8.8 mg/dL (8.5-10.1); POTASSIUM 3.5 mmol/L (3.5-5.1)
[2019-12-25 05:16] VITALS: BP 124/81
== END 2019-12-25 05:19 ==
LOC: ER 03:39
PROVIDERS: Emergency Medicine
DX: R10.30 Lower abdominal pain, unspecified (principal); R06.02 Shortness of breath; R45.89 Other symptoms and signs involving emotional state; I10 Essential (primary) hypertension; K21.9 Gastro-esophageal reflux disease without esophagitis; Z79.899 Other long term (current) drug therapy; Z87.891 Personal history of nicotine dependence

== ENCOUNTER 2020-04-23 07:57 | Emergency (ER) | payer BC ==
[~2020-04-23] VITALS: Ht 182.9 cm; Wt 95.3 kg
[2020-04-23] MEDS ORDERED: AMITRIPTYLINE H10 M1 PO (09:08)
[2020-04-23] MEDS ORDERED: RIZATRIPTAN5 M1 PO (09:08)
[2020-04-23] MEDS ORDERED: VALIUM2 MG PO (09:13)
[2020-04-23] MEDS ORDERED: ONDANSETRON ODT8 MG PO (09:13)
[2020-04-23 09:35] LABS: ABSOLUTE NEUTROPHILS 2.1 thou/uL (1.4-8.2); MONOCYTES 8.3 % (1.0-8.0)
[2020-04-23 09:37] LABS: EOSINOPHILS 5.9 % (0.0-3.0); HEMATOCRIT 42.8 % (42.0-52.0); HEMOGLOBIN 14.4 gm/dL (14.0-18.0); LYMPHOCYTES 31.1 % (24.0-44.0); MCH 30.6 pg (26.0-34.0); MCHC 33.8 g/dL (28.0-37.0); MCV 90.7 fL (80.0-100.0); PLATELET COUNT 179 thou/uL (150-400); POLYS 53.7 % (36.0-66.0); RBC 4.72 mil/uL (4.50-6.00); RDW 12.8 % (10.5-14.5); WBC 3.8 thou/uL (4.0-11.0)
[2020-04-23 09:53] LABS: ANION GAP 6 mmol/L (7-16); BUN 6 mg/dL (7-18); CHLORIDE 104 mmol/L (98-107); CO2 31 mmol/L (21-32); GLUCOSE 101 mg/dL (74-106); POTASSIUM 4.4 mmol/L (3.5-5.1); SODIUM 141 mmol/L (136-145)
[2020-04-23 10:03] LABS: ALBUMIN 3.9 g/dL (3.4-5.0); SGOT 18 U/L (15-37); SGPT 22 U/L (30-65); TOTAL BILIRUBIN 1.1 mg/dL (0.2-1.0); TOTAL PROTEIN 7.6 g/dL (6.4-8.2); TROPONIN-I <0.06 ng/mL (<0.06)
[2020-04-23 10:13] LABS: AMP/METHAMP Negative (Negative); BARBITURATES Negative (Negative); BENZODIAZEPINES Negative (Negative); COCAINE Negative (Negative); METHADONE Negative (Negative); OPIATES Negative (Negative); PCP Negative (Negative)
[2020-04-23 10:41] VITALS: BP 133/82
--- NOTE | 2020-04-25 07:30 | EKG ---
[facility] [address] ELECTROCARDIOGRAM REPORT Name: PLACIOD SY Room #: [facility]#: [id number] Admission: 04/23/20 Attend Phys: Discharge: 04/23/20 Date of : 65 Report #: [id number] THIS REPORT FOR: cc: Brie Meng MD, Nora P. MD Lundgren, Craig H. MD [facility] ~ THIS REPORT FOR: //name// [facility] ED Test Date: 2020-04-23 Test Time: 08:25:36 Pat Name: PLACIDO SY Department: Room: Gender: Hard Candy Batch Mixer: EBENEZER : 1965 Requested By: Sedrick Sheppard Order Number: [id number] MD: Guillermo Omalley Measurements Intervals [place] Rate: 59 P: 67 [place]: 167 QRS: 47 QRSD: 93 T: 48 QT: 396 QTc: 393 Interpretive Statements Sinus rhythm Normal tracing Compared to ECG 12/04/2019 10:44:34 No significant changes Electronically Signed On 04-25-2020 7:30:02 CDT by Guillermo Omalley [email or web address] <ELECTRONICALLY SIGNED> By: Guillermo Omalley MD, FACC 04/25/20 0730 4 4 Guillermo Omalley MD, [facility] /EPI
== END 2020-04-23 10:40 | disposition home or self-care (01) ==
LOC: ER 07:57
PROVIDERS: Emergency Medicine
DX: H81.13 Benign paroxysmal vertigo, bilateral (principal); R51.9 Headache, unspecified; H93.13 Tinnitus, bilateral; I10 Essential (primary) hypertension; K21.9 Gastro-esophageal reflux disease without esophagitis; Z79.899 Other long term (current) drug therapy; Z87.891 Personal history of nicotine dependence

== ENCOUNTER 2020-11-15 14:25 | Emergency (ER) | payer OTHER ==
[~2020-11-15] VITALS: Ht 182.9 cm; Wt 97.5 kg
[~2020-11-15 14:25] MED LIST changes: +AMITRIPTYLINE H10 M1 PO; +ONDANSETRON ODT8 MG PO; +RIZATRIPTAN5 M1 PO; +VALIUM2 MG PO
[2020-11-15 14:48] LABS: ABSOLUTE NEUTROPHILS 2.3 thou/uL (1.4-8.2); BASOPHILS 1.1 % (0.0-2.0); EOSINOPHILS 5.1 % (0.0-3.0); HEMATOCRIT 41.3 % (42.0-52.0); HEMOGLOBIN 14.4 gm/dL (14.0-18.0); LYMPHOCYTES 40.3 % (24.0-44.0); MCH 31.6 pg (26.0-34.0); MCHC 34.9 g/dL (28.0-37.0); MCV 90.4 fL (80.0-100.0); MONOCYTES 9.1 % (1.0-8.0); PLATELET COUNT 165 thou/uL (150-400); POLYS 44.4 % (36.0-66.0); RBC 4.57 mil/uL (4.50-6.00); RDW 13.3 % (10.5-14.5); WBC 5.2 thou/uL (4.0-11.0)
[2020-11-15 14:59] LABS: ANION GAP 6 mmol/L (7-16); BUN 6 mg/dL (7-18); CALCIUM 8.5 mg/dL (8.5-10.1); CHLORIDE 105 mmol/L (98-107); CO2 31 mmol/L (21-32); CREATININE 1.1 mg/dL (0.7-1.3); GLUCOSE 89 mg/dL (74-106); POTASSIUM 3.6 mmol/L (3.5-5.1); SODIUM 142 mmol/L (136-145)
[2020-11-15 15:08] LABS: TROPONIN-I <0.06 ng/mL (<0.06)
[2020-11-15 16:13] VITALS: BP 121/80
--- NOTE | 2020-11-16 09:05 | EKG ---
[place] [address] [facility] [place] [address] ELECTROCARDIOGRAM REPORT Name: PLACIDO SY [facility] [id number] Admission: 11/15/20 Attend Phys: Discharge: 11/15/20 Date of : 65 Report #: [id number] [facility] ED Test Date: 2020-11-15 Test Time: 14:31:50 Pat Name: PLACIDO SY Department: Room: Gender: Physicians Assistant: geena : 1965 Requested By: Crescencio Lombardo Order Number: [id number] MD: Guillermo Omalley Measurements Intervals [place] Rate: 63 P: 68 [place]: 167 QRS: 33 QRSD: 84 T: 32 QT: 378 QTc: 387 Interpretive Statements Sinus rhythm Normal tracing Compared to ECG 04/23/2020 08:25:36 No significant changes Electronically Signed On 11-16-2020 9:04:54 CDT by Guillermo Omalley [email or web address] <ELECTRONICALLY SIGNED> By: Guillermo Omalley MD, [facility] 11/16/20 0904 1431 1431 Guillermo Omalley MD, FACC /EPI
== END 2020-11-15 16:13 | disposition home or self-care (01) ==
LOC: ER 14:25
PROVIDERS: Nurse Practitioner
DX: R07.89 Other chest pain (principal); I10 Essential (primary) hypertension; K21.9 Gastro-esophageal reflux disease without esophagitis; Z79.899 Other long term (current) drug therapy; Z87.891 Personal history of nicotine dependence

== ENCOUNTER 2021-03-17 20:07 | Emergency (ER) | payer OTHER ==
[~2021-03-17] VITALS: Ht 182.9 cm; Wt 102.5 kg
[2021-03-17 21:02] LABS: ABSOLUTE NEUTROPHILS 2.7 thou/uL (1.4-8.2); BASOPHILS 0.7 % (0.0-2.0); EOSINOPHILS 5.3 % (0.0-3.0); HEMATOCRIT 43.6 % (42.0-52.0); HEMOGLOBIN 15.1 gm/dL (14.0-18.0); LYMPHOCYTES 40.7 % (24.0-44.0); MCH 31.4 pg (26.0-34.0); MCHC 34.7 g/dL (28.0-37.0); MCV 90.7 fL (80.0-100.0); MONOCYTES 8.9 % (1.0-8.0); PLATELET COUNT 178 thou/uL (150-400); POLYS 44.4 % (36.0-66.0); RBC 4.81 mil/uL (4.50-6.00); RDW 13.1 % (10.5-14.5); WBC 6.1 thou/uL (4.0-11.0)
[2021-03-17 21:10] LABS: CREATININE 1.2 mg/dL (0.7-1.3); POTASSIUM 3.9 mmol/L (3.5-5.1)
[2021-03-17 23:15] VITALS: BP 128/86
--- NOTE | 2021-03-21 07:33 | EKG ---
[place] [address] [facility] [place] [place] [address] ELECTROCARDIOGRAM REPORT Name: PLACIDO SY [facility] [id number] Admission: 03/17/21 Attend Phys: Discharge: 03/17/21 Date of : 65 Report #: [id number] [facility] ED Test Date: 2021-03-17 Test Time: 22:19:14 Pat Name: PLACIDO SY Department: Room: Gender: Government Affairs Director: : 1965 Requested By: Denys Brown Order Number: [id number] MD: Herb Watts Measurements Intervals [place] Rate: 69 P: 58 [place]: 152 QRS: 25 QRSD: 82 T: 33 QT: 365 QTc: 391 Interpretive Statements Sinus rhythm Compared to ECG 03/17/2021 20:10:27 Atrial premature complex(es) no longer present T-wave abnormality no longer present Electronically Signed On 03-21-2021 7:33:29 CDT by Herb Watts [email or web address] <ELECTRONICALLY SIGNED> By: Herb Watts MD, [facility] 03/21/21 0733 2219 18 Herb Watts MD, FACC /EPI
--- NOTE | 2021-03-21 07:33 | EKG ---
[place] [address] [facility] [employer] [place] [address] ELECTROCARDIOGRAM REPORT Name: PLACIDO SY Room #: [facility]#: [id number] Admission: 03/17/21 Attend Phys: Discharge: 03/17/21 Date of : 65 Report #: [id number] [facility] ED Test Date: 2021-03-17 Test Time: 20:10:27 Pat Name: PLACIDO SY Department: Room: Gender: Field Crop Grower: VINEET : 1965 Requested By: Denys Brown Order Number: [id number] MD: Herb Watts Measurements Intervals [place] Rate: 77 P: 71 [place]: 153 QRS: 35 QRSD: 81 T: 42 QT: 342 QTc: 387 Interpretive Statements Sinus rhythm Atrial premature complex Borderline T wave abnormalities Compared to ECG 11/15/2020 14:31:50 Atrial premature complex(es) now present T-wave abnormality now present Electronically Signed On 03-21-2021 7:33:14 CDT by Herb Watts [email or web address] <ELECTRONICALLY SIGNED> By: Herb Watts MD, [facility] 03/21/21732 09 09 Herb Watts MD, FACC /EPI
== END 2021-03-17 23:15 | disposition home or self-care (01) ==
LOC: ER 20:07
PROVIDERS: Student in an Organized Health Care Education/Training Program
DX: R07.89 Other chest pain (principal); I10 Essential (primary) hypertension; K21.9 Gastro-esophageal reflux disease without esophagitis; Z87.891 Personal history of nicotine dependence

== ENCOUNTER 2021-07-30 02:17 | Inpatient (IN) | payer BC ==
[~2021-07-30] VITALS: Ht 182.9 cm; Wt 102.5 kg
[2021-07-30] VITALS (7 sets, daily range): BP systolic 117–137; BP diastolic 57–77
[2021-07-30 03:11] LABS: ABSOLUTE NEUTROPHILS 2.2 thou/uL (1.4-8.2); BASOPHILS 0.9 % (0.0-2.0); EOSINOPHILS 5.1 % (0.0-3.0); HEMOGLOBIN 15.1 gm/dL (14.0-18.0); LYMPHOCYTES 44.5 % (24.0-44.0); MCH 30.7 pg (26.0-34.0); MCHC 33.6 g/dL (28.0-37.0); MCV 91.3 fL (80.0-100.0); MONOCYTES 9.2 % (1.0-8.0); PLATELET COUNT 175 thou/uL (150-400); POLYS 40.3 % (36.0-66.0); RBC 4.93 mil/uL (4.50-6.00); RDW 12.7 % (10.5-14.5); WBC 5.5 thou/uL (4.0-11.0)
[2021-07-30 03:19] LABS: CALCIUM 8.6 mg/dL (8.5-10.1); CREATININE 1.1 mg/dL (0.7-1.3)
[2021-07-30 03:24] LABS: POTASSIUM 4.3 mmol/L (3.5-5.1)
[2021-07-30 03:26] LABS: ALBUMIN 3.6 g/dL (3.4-5.0); TOTAL BILIRUBIN 0.9 mg/dL (0.2-1.0); TOTAL PROTEIN 7.2 g/dL (6.4-8.2)
--- NOTE | 2021-07-30 07:11 | NUR ---
0625 RECIEVED FROM ER PER CART WITH AT BEDSIDE. TELEMETRY APPLIED AND SHOWS AFIB 96 CONTROLLED. ADMISSION PROCESS STARTED.
[2021-07-30 07:20] LABS: CHOLESTEROL 242 mg/dL (<200); HDL CHOLESTEROL 26 mg/dL (>40); LDL CHOLESTEROL 163 mg/dL (<100); TC:HDL 9.3 Ratio (Not establshd); TRIGLYCERIDE 266 mg/dL (<150); VLDL 53 mg/dL (<40)
--- NOTE | 2021-07-30 10:31 | EKG ---
[address] [place] [address] ELECTROCARDIOGRAM REPORT Name: PLACIDO SY Room #: 200-I ADM IN .R.#: [id number] Admission: 07/30/21 Attend Phys: Arianne Fink MD Discharge: Date of : 65 Report #: [id number] [facility] ED Test Date: 2021-07-30 Test Time: 03:41:12 Pat Name: PLACIDO SY Department: Room: 200 Gender: M Waiter/Waitress Informal: adeel : 1965 Requested By: Abner Serna Order Number: [id number] MD: Herb Watts Measurements Intervals [place] Rate: 97 P: NE: QRS: 40 QRSD: 78 T: -14 QT: 348 QTc: 442 Interpretive Statements Atrial fibrillation Borderline T abnormalities, inferior leads Compared to ECG 03/17/2021 22:19:14 T-wave abnormality now present Sinus rhythm no longer present Electronically Signed On 07-30-2021 10:31:47 FLOORING SALES MANAGER by Herb Watts [email or web address] <ELECTRONICALLY SIGNED> By: Herb Watts MD, [facility] 07/30/21 1031 0341 034 Herb Watts MD, FACC /EPI
--- NOTE | 2021-07-30 12:33 | NUR ---
PATIENT HR RATE DROPPING INTO THE 70'S, REMAINING IN AFIB, SO TOOK PATIENT OFF THE CARDIZEM AND REMAINS ON AMNIO AT 33ML/HR.
--- NOTE | 2021-07-30 16:41 | NUR ---
ASSUMED CARE OF PATIENT AT 0700. PATIENT RUNNING UP INTO THE 150'S WITH AMBULATIOPN TO THE BATHROOM SO CARDIZEM WAS STARTED. AN ORDER FOR AMIO IS ADDED AND STARTED ON PATIENT AND PATIENT REMAINED IN AFIB BUT WAS DROPPING INTO THE 70'S WITH HIS HEART RATE SO CARDIZEM WAS STOPPED. AMIO STILL INFUSING AT 33ML/HR BUT WILL BE DROPPING TO 16.7 BEFORE END OF SHIFT. PATIENTS' ONLY COMPLAINT IS JUST NOT FEELING WELL AND EXPLAINED THAT THE BODY DOESN'T LIKE BEING IN AFUB AND HOPEFULLY ONCE HER CONVERTS HE WILL FEEL BETTER. PATIENT TO BE NPO AT MIDNIGHT FOR A NAMITA TOMORROW.
[2021-07-31 00:30] VITALS: BP 106/76
[2021-07-31 03:50] VITALS: BP 109/75
--- NOTE | 2021-07-31 04:21 | NUR ---
Assummed pt care at 1900. Pt is alert and oriented. No sign of distress noted in pt. Currently denies pain. Pt is ambulatory. Assessment completed and documeted. Scheduled meds administered to pt. Pt is NPO after midnight for a scheduled NAMITA. No acute event during the night. Pt converted back to NSR. Continue to monitor. No further needs at this time.
[2021-07-31 04:55] LABS: CALCIUM 8.5 mg/dL (8.5-10.1); CREATININE 1.1 mg/dL (0.7-1.3); POTASSIUM 4.2 mmol/L (3.5-5.1)
--- NOTE | 2021-07-31 08:41 | EKG ---
[place] [address] [facility] [place] [address] ELECTROCARDIOGRAM REPORT Name: PLACIDO SY Room #: 200-I ADM IN .R.#: [id number] Admission: 07/30/21 Attend Phys: Arianne Fink MD Discharge: Date of : 65 Report #: [id number] [facility] ED Test Date: 2021-07-30 Test Time: 02:29:52 Pat Name: PLACIDO SY Department: Room: [facility] Gender: M Automation Control Integrator: BOBBY : 1965 Requested By: Abner Serna Order Number: [id number] MD: Guillermo Omallye Measurements Intervals [place] Rate: 143 P: RI: QRS: 45 QRSD: 80 T: -3 QT: 318 QTc: 491 Interpretive Statements Atrial fibrillation Borderline prolonged QT interval Baseline wander in lead(s) II,III,aVR,aVF Compared to ECG 03/17/2021 22:19:14 Sinus rhythm no longer present Electronically Signed On 07-31-2021 8:41:40 MACHINE HEEL BUILDER by Guillermo Omalley [email or web address] <ELECTRONICALLY SIGNED> By: Guillermo Omalley MD, [facility] 07/31/21 0841 8 Guillermo Omalley MD, [facility] /EPI
[2021-07-31] MEDS ORDERED: DILTIAZEM 24HR120 M1 PO (09:03)
[2021-07-31] MEDS ORDERED: LIPITOR40 MG PO (09:03)
[2021-07-31] MEDS ORDERED: ELIQUIS5 MG PO (09:03)
[2021-07-31 09:35] VITALS: BP 125/85
[2021-07-31 10:37] VITALS: BP 125/85
[2021-07-31 10:43] VITALS: BP 125/85
--- NOTE | 2021-07-31 11:08 | NUR ---
PATIENT ADMITTED FOR AFIB RVR. CHART REVIEWED AND DISCUSSED WITH CARE TEAM. CM MET WITH PT THIS DAY. PTS AT BEDSIDE. CM ROLE INTRODUCED. PATIENT REPORTS HE LIVES AT HOME WITH HIS . HE IS INDEP WITH ADLS AND MOBILITY. HE REPORTS HE STILL DRIVES AND WORKS. PT INDICATED NO NEEDS ONCE MEDICALLY STABLE TO DC HOME. NO CM INTERVENTIONS INDICATED.
--- NOTE | 2021-07-31 13:30 | 2DMMODE ---
[facility] [place] [place] [address] 2 D/M-MODE ECHOCARDIOGRAM Name: PLACIDO SY Room #: 200-I [facility]#: [id number] Admission: 07/30/21 Attend Phys: Trey Delgado MD Discharge: 07/31/21 Date of : 65 Report #: [id number] THIS REPORT FOR: cc: ANDREW - No family physician/PCP ANDREW - No family physician/PCP Guillermo Omalley MD [facility] ~ APPROVED REPORT Study performed: 07/31/2021 10:58:55 EXAM: Comprehensive 2D, Doppler, and color-flow Echocardiogram Patient Location: Bedside Room #: 200 Status: routine BSA: 2.24 HR: 77 bpm BP: 125/85 mmHg Rhythm: NSR Other Information Study Quality: Good Indications Atrial Fibrillation Hypertension/HDD 2D Dimensions RVDd: 35.62 mm IVSd: 9.98 (7-11mm) LVOT Diam: 19.60 (18-24mm) LVDd: 48.41 mm PWd: 10.72 (7-11mm) Ascending Ao: 33.53 (22-36mm) LVDs: 35.43 (25-40mm) Left Atrium: 34.48 (27-40mm) Aortic Root: 30.60 mm IVC: 14.00 mm Volumes Left Atrial Volume (Systole) Single Plane 4CH: 30.97 mL Single Plane 2CH: 51.39 mL LA ESV Index: 20.00 mL/m2 Aortic Valve AoV Peak Brent.: 1.10 m/s AO Peak Gr.: 4.84 mmHg LVOT Max P.01 mmHg LVOT Max V: 0.87 m/s [facility] [address] [address] 2 D/M-MODE ECHOCARDIOGRAM Name: PLACIDO SY Room #: [address] [place] [address]#: [id number] Admission: 07/30/21 Attend Phys: Trey Delgado MD Discharge: 07/31/21 Date of : 65 Report #: [id number] NATALYA Vmax: 2.38 cm2 Mitral Valve E/A Ratio: 1.1 MV Decel. Time: 230.99 ms MV E Max Brent.: 0.74 m/s MV A Brent.: 0.67 m/s MV PHT: 66.99 ms IVRT: 119.95 ms Pulmonary Valve PV Peak Brent.: 0.91 m/s PV Peak Gr.: 3.29 mmHg Pulmonary Vein P Vein S: 0.34 m/s P Vein A: 0.20 m/s P Vein D: 0.26 m/s P Vein A Dur.: 92.3 msec P Vein S/D Ratio: 1.31 Left Ventricle The left ventricle is normal size. There is normal LV segmental wall motion. There is normal left ventricular wall thickness. Left ventricular systolic function is normal. The left ventricular ejection fraction is within the normal range. LVEF is >55%. Mild diastolic dysfunction Right Ventricle The right ventricle is normal size. The right ventricular systolic function is normal. Atria The left atrium size is normal. The right atrium size is normal. Aortic Valve The aortic valve is normal in structure. No aortic regurgitation is present. There is no aortic valvular stenosis. Mitral Valve The mitral valve is normal in structure. There is no mitral valve regurgitation noted. No evidence of mitral valve stenosis. Tricuspid Valve The tricuspid valve is normal in structure. There is no tricuspid valve regurgitation noted. Pulmonic Valve [facility] [address] [place] [address] 2 D/M-MODE ECHOCARDIOGRAM Name: PLACIDO SY Room #: 200-I [facility] [place] ..#: [id number] Admission: 07/30/21 Attend Phys: Trey Delgado MD Discharge: 07/31/21 Date of : 65 Report #: [id number] The pulmonary valve is normal in structure. There is no pulmonic valvular regurgitation. Great Vessels The aortic root is normal in size. IVC is normal in size and collapses >50% with inspiration. Pericardium There is no pericardial effusion. <Conclusion> Left ventricular systolic function is normal. There is normal LV segmental wall motion. LVEF 60-65%. Mild diastolic dysfunction The aortic valve is normal in structure. No aortic regurgitation or stenosis. The mitral valve is normal in structure. No mitral valve regurgitation Pulmonary artery pressure could not be reliably ascertained. There is no pericardial effusion. <ELECTRONICALLY SIGNED> By: Guillermo Omalley MD, FACC 07/31/21 1329 28 28 Guillermo Omalley MD, FACC /INF
--- NOTE | 2021-07-31 14:56 | EKG ---
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: ALESSANDRA : 1965 Requested By: Herb Watts Order Number: [id number] MD: Herb Watts Measurements Intervals [place] Rate: 74 P: 60 [place]: 158 QRS: 23 QRSD: 82 T: 25 QT: 381 QTc: 423 Interpretive Statements Sinus rhythm Borderline low voltage, extremity leads Nonspecific T abnrm, anterolateral leads Compare to ECG at 07-30-2021 at 03:41:12 Electronically Signed On 07-31-2021 14:55:52 [employer] LIFE MANAGER by Herb Watts [email or web address] <ELECTRONICALLY SIGNED> By: Herb Watts MD, [facility] 07/31/21 1455 3 3 Herb Watts MD, [facility] /EPI
== END 2021-07-31 11:49 | disposition home or self-care (01) | DRG 310 ==
LOC: ER 02:17 → EROBS 04:17 → 2N 04:17
PROVIDERS: Emergency Medicine; Nurse Practitioner Family; ADMIT Hospitalist; ATTEND Hospitalist
DX: I48.0 Paroxysmal atrial fibrillation (principal); Z79.01 Long term (current) use of anticoagulants; Z20.822 Contact with and (suspected) exposure to COVID-19; K21.9 Gastro-esophageal reflux disease without esophagitis; I10 Essential (primary) hypertension; E78.5 Hyperlipidemia, unspecified; K44.9 Diaphragmatic hernia without obstruction or gangrene
CPT/HCPCS: 10081

== ENCOUNTER 2021-08-06 20:50 | Emergency (ER) | payer BC ==
[~2021-08-06] VITALS: Ht 182.9 cm; Wt 102.1 kg
[~2021-08-06 20:50] MED LIST changes: +DILTIAZEM 24HR120 M1 PO; +ELIQUIS5 MG PO; +LIPITOR40 MG PO
[2021-08-06 21:45] LABS: ABSOLUTE NEUTROPHILS 2.6 thou/uL (1.4-8.2); EOSINOPHILS 6.9 % (0.0-3.0); HEMATOCRIT 44.7 % (42.0-52.0); HEMOGLOBIN 15.3 gm/dL (14.0-18.0); LYMPHOCYTES 35.5 % (24.0-44.0); MCH 30.8 pg (26.0-34.0); MCHC 34.3 g/dL (28.0-37.0); MCV 89.9 fL (80.0-100.0); MONOCYTES 7.4 % (1.0-8.0); PLATELET COUNT 194 thou/uL (150-400); POLYS 49.2 % (36.0-66.0); RBC 4.97 mil/uL (4.50-6.00); RDW 12.8 % (10.5-14.5); WBC 5.3 thou/uL (4.0-11.0)
[2021-08-06 21:52] LABS: POTASSIUM 3.7 mmol/L (3.5-5.1)
[2021-08-06 21:58] LABS: ALBUMIN 3.9 g/dL (3.4-5.0); TOTAL BILIRUBIN 0.9 mg/dL (0.2-1.0); TOTAL PROTEIN 7.2 g/dL (6.4-8.2)
[2021-08-06 22:00] LABS: MAGNESIUM 1.9 mg/dL (1.8-2.4)
[2021-08-06 22:55] VITALS: BP 129/81
--- NOTE | 2021-08-07 07:24 | EKG ---
[place] [address] [employer] [facility] [place] [address] ELECTROCARDIOGRAM REPORT Name: PLACIDO SY 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
== END 2021-08-06 22:56 | disposition home or self-care (01) ==
LOC: ER 20:50
PROVIDERS: Emergency Medicine
DX: R00.2 Palpitations (principal); I10 Essential (primary) hypertension; K21.9 Gastro-esophageal reflux disease without esophagitis; Z87.891 Personal history of nicotine dependence

== ENCOUNTER 2021-08-09 21:23 | Emergency (ER) | payer BC ==
[~2021-08-09] VITALS: Ht 182.9 cm; Wt 101.2 kg
[2021-08-10 00:19] LABS: CALCIUM 8.5 mg/dL (8.5-10.1); CREATININE 1.1 mg/dL (0.7-1.3)
[2021-08-10 01:32] VITALS: BP 118/71
== END 2021-08-10 01:47 | disposition home or self-care (01) ==
LOC: ER 21:23
PROVIDERS: Emergency Medicine
DX: R51.9 Headache, unspecified (principal); I10 Essential (primary) hypertension; K21.9 Gastro-esophageal reflux disease without esophagitis; Z87.891 Personal history of nicotine dependence